=== PATIENT | female | born 1975 | race Two or more races ===

== ENCOUNTER 2022-06-13 11:33 | Emergency (ER) | payer MEDICAID, OTHER ==
[~2022-06-13] VITALS: Ht 162.6 cm; Wt 61.7 kg
--- NOTE | 2022-06-13 11:47 | NUR ---
BIBSELF C/O LLE PAIN/DISCOMFORT, PRESENTS W A CAST S/P FRACTURE BACK IN 05/27/22. AMBULATORY, PLACED ON BED, [id number].
--- NOTE | 2022-06-13 14:30 | NUR ---
Patient discharged to home in stable condition. Written and verbal after care instructions given. Patient verbalizes understanding of instruction.
[2022-06-13 14:39] VITALS: BP 106/61
== END 2022-06-13 14:30 | disposition home or self-care (01) ==
LOC: ER 11:41
DX: S82.892D Other fracture of left lower leg, subsequent encounter for closed fracture with routine healing (principal); X58.XXXD Exposure to other specified factors, subsequent encounter
CPT/HCPCS: 73610-TC